=== PATIENT | female | born 1970 | race Two or more races ===

== ENCOUNTER 2019-04-16 09:11 | Emergency (ER) | payer MEDICAID ==
[~2019-04-16] VITALS: Ht 162.6 cm; Wt 73.9 kg
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
--- NOTE | 2019-04-16 09:30 | NUR ---
called EVAN [phone] table machine operator # [id number]
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
--- NOTE | 2019-04-16 12:14 | NUR ---
Patient discharged to home in stable condition. Written and verbal after care instructions given. Patient verbalizes understanding of instruction.
--- NOTE | 2019-04-16 12:15 | NUR ---
MARIA ANTONIA BROOKE AT BEDSIDE
[2019-04-16 12:22] VITALS: BP 121/78
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
== END 2019-04-16 12:47 | disposition home or self-care (01) ==
LOC: ER 09:13
DX: S00.81XA Abrasion of other part of head, initial encounter (principal); Y08.89XA Assault by other specified means, initial encounter; Y93.89 Activity, other specified; Y92.89 Other specified places as the place of occurrence of the external cause; Y99.8 Other external cause status; Z59.0 Homelessness